=== PATIENT | male | born 1980 | race Caucasian/White ===

== ENCOUNTER 2018-10-11 15:42 | Emergency (ER) | payer OTHER ==
[2018-10-11] MEDS ORDERED: KETOROLAC TROMETHAMINE 60 MG/2 ML VIAL IM ONE (15:49)
[2018-10-11] MEDS ORDERED: predniSONE 20 MG TABLET (UD) PO ONE (15:49)
--- NOTE | 2018-10-11 15:56 | PDOC ---
History of Present Illness - History of Present Illness Initial Comments: The patient is a 37 year old male, with a significant PMH of degenerative disc disease, who presents to the emergency department today complaining of bilateral low back pain, without trauma, for 2 weeks. Patient reports the pain is most prominent bilaterally in the low back, and radiates into both hips. He states that pain is worse on his left side than his right, and is exacerbated with bending over. Patient notes he was seen two weeks ago at [facility] for this same issue, where he was given Percocet and Medrol which minimally alleviated his symptoms, but Meloxicam did not. He states he was then referred to a painter helper, where he is awaiting approval for an MRI of his spine. During this time, the pain has gotten progressively worse, prompting him to try to contact his painter helper who is out of office. The answering service suggested he come to the ED to be treated for his pain until his MRI is approved. He also notes he had an epidural 2 years ago for his degenerative disc disease, which he experienced relief for over one year. He denies bilateral LE weakness at this time. The patient denies chest pain, shortness of breath, headache and dizziness. Denies fever, chills, nausea, vomit, diarrhea and constipation. Denies dysuria, frequency, urgency and hematuria. Allergies: NKA Past surgical history: Bilateral hip pin Social history: No reported PCP: none reported 10/11/18 16:05 <Tejal Albrecht - Last Filed: 10/11/18 16:05> <Jean Nichols - Last Filed: 10/11/18 16:11> - General Chief Complaint: Back Pain Stated Complaint: BACK PAIN Time Seen by Provider: 10/11/18 15:49 Past History <Tejal Albrecht - Last Filed: 10/11/18 16:05> <Jean Nichols - Last Filed: 10/11/18 16:11> - Past Medical History Allergies/Adverse Reactions: Allergies Allergy/AdvReac Type Severity Reaction Status Date / Time No Known Allergies Allergy Verified 10/11/18 15:43 Home Medications: Ambulatory Orders Albuterol Sulfate Inhaler - [Ventolin HFA Inhaler -] 1 - 2 inh PO QID PRN Escitalopram Oxalate [Lexapro -] 30 mg PO DAILY 10/11/18 Fluticasone/Salmeterol [Advair 250-50 Diskus] 1 each IH ASDIR 10/11/18 Meloxicam [Mobic] 15 mg PO DAILY 10/11/18 Oxycodone HCl/Acetaminophen [Percocet 5-325 mg Tablet] 1 - 2 tab PO TID PRN #20 tab MDD 6 tabs 10/11/18 Prednisone [Prednisone 50 MG TABLETS] 50 mg PO DAILY #5 tablet 10/11/18 Review of Systems - Review of Systems Constitutional: No: Chills, Fever, Night Sweats Respiratory: No: Cough, Shortness of Breath ABD/GI: No: Diarrhea : No: Incontinence Musculoskeletal: Yes: Back Pain. No: Muscle Weakness Neurological: No: Headache, Paresthesia, Weakness All Other Systems: Reviewed and Negative <Jean Nichols - Last Filed: 10/11/18 16:11> *Physical Exam - Vital Signs Last Vital Signs Temp Pulse Resp BP Pulse Ox 98.1 F 75 18 138/80 97 10/11/18 15:42 10/11/18 15:42 10/11/18 15:42 10/11/18 15:42 10/11/18 15:42 - Physical Exam Comments: GENERAL: The patient is awake, alert, and fully oriented, in no acute distress. HEAD: Normal with no signs of trauma. EYES: Pupils equal, round and reactive to light, extraocular movements intact, sclera anicteric, conjunctiva clear. EXTREMITIES: Normal range of motion, no edema. NEUROLOGICAL: +Positive straight leg bilaterally, but 5/5 flexion and extension of the hip, knees, ankles, and toes. No midline reproducible tenderness. No reproducible tenderness over the sciatic region. Normal speech. PSYCH: Normal mood, normal affect. SKIN: Warm, Dry, normal turgor, no rashes or lesions noted. 10/11/18 16:11 <Tejal Albrecht - Last Filed: 10/11/18 16:05> Moderate Sedation - Procedure Monitoring Vital Signs: Procedure Monitoring Vital Signs Temperature 98.1 F 10/11/18 15:42 Pulse Rate 75 10/11/18 15:42 Respiratory Rate 18 10/11/18 15:42 Blood Pressure 138/80 10/11/18 15:42 O2 Sat by Pulse Oximetry (%) 97 10/11/18 15:42 <Tejal Albrecht - Last Filed: 10/11/18 16:05> Medical Decision Making - Medical Decision Making 10/11/18 15:51 Healthy 37-year-old male presents with 2 weeks of atraumatic left low back pain , history of degenerative disc disease in the past treated with epidurals now with recurrence about 2 weeks ago, initially treated in outside emergency department with Medrol Dosepak and Percocet but then re-exacerbated 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 Denies any weakness or numbness or bowel/bladder issues. Afebrile, vital signs normal No reproducible midline tenderness, normal strength 4 extremities, neurovascularly intact 37-year-old female presents with atraumatic exacerbation of low back pain, possible underlying disc disease awaiting outpatient management but delayed given the holidays. He is neurologically intact here without red flags on history or physical exam. No indication for emergent imaging We'll start course of NSAID, opiate, steroids Girlfriend here to drive him home, already has follow-up in place, understands return criteria. <Jean Nichols - Last Filed: 10/11/18 16:11> *DC/Admit/Observation/Transfer - Attestations Scribe Attestion: 10/11/18 16:11 Documentation prepared by MEREDITH Cardenas, acting as medical receptionist assistant for Jean Nichols MD. <Tejal Albrecht - Last Filed: 10/11/18 16:05> <Jean Nichols - Last Filed: 10/11/18 16:11> Diagnosis at time of Disposition: Lumbar radiculopathy Low back pain Qualifiers: Chronicity: acute Back pain laterality: bilateral Sciatica presence: without sciatica Qualified Code(s): M54.5 - Low back pain - Discharge Dispostion Disposition: HOME Condition at time of disposition: Stable - Prescriptions Prescriptions: Oxycodone HCl/Acetaminophen [Percocet 5-325 mg Tablet] 1 - 2 tab PO TID PRN #20 tab MDD 6 tabs PRN Reason: Severe Pain Prednisone [Prednisone 50 MG TABLETS] 50 mg PO DAILY #5 tablet - Referrals Referrals: Madhu Hassan MD [Staff Physician] - - Patient Instructions Printed Discharge Instructions: DI for Low Back Pain, DI for Lumbar Radiculopathy Additional Instructions: Activity as tolerated, avoid bed rest and heavy lifting. Stay hydrated. Aleve or meloxicam as previously prescribed as anti-inflammatory medication. Take prednisone daily as prescribed as steroid for further anti-inflammatory effect. Take Percocet as prescribed only as needed for severe pain, this medication can make you lightheaded so take proper precautions. Continue your medications as previously prescribed by your physician. You should follow up with your primary doctor and painter helper as soon as possible regarding today's emergency department visit. The arranged MRI will help further identify the cause of your symptoms. Return to the emergency department for any new or concerning symptoms, particularly intolerable pain, leg weakness or numbness, bowel or bladder issues , fevers or chills.
[2018-10-11] MEDS ORDERED: KETOROLAC TROMETHAMINE 60 MG/2 ML VIAL ONE (16:05)
[2018-10-11] MEDS ORDERED: predniSONE 20 MG TABLET (UD) ONE (16:06)
[2018-10-11 16:10] VITALS: BP 138/80; PULSE 75; TEMP 98.1; BMI 36.9
== END 2018-10-11 16:20 | disposition home or self-care (01) ==
LOC: FER 15:42
PROC: 3E0233Z Introduction of Anti-inflammatory into Muscle, Percutaneous Approach (ICD-10-PCS; principal; 2018-10-11)
DX: M54.5 Low back pain (principal); M54.16 Radiculopathy, lumbar region
CPT/HCPCS: 99283-25

== ENCOUNTER 2021-08-07 14:24 | Emergency (ER) | payer OTHER ==
[2021-08-07] MEDS ORDERED: SODIUM CHLORIDE 1,000 ML IV STA (15:02)
[2021-08-07] MEDS ORDERED: MAG HYDROX/AL HYDROX/SIMETH 30 ML UNIT-DOSE CUP PO ONE (15:02)
[2021-08-07] MEDS ORDERED: PANTOPRAZOLE SODIUM 40 MG in SODIUM CHLORIDE 100 ML IVPB ONE (15:02)
[2021-08-07] MEDS ORDERED: ACETAMINOPHEN 1000 MG/100 ML VIAL IVPB ONE (15:03)
[2021-08-07 15:04] VITALS: TEMP 98.1; BMI 30.9
[2021-08-07 15:09] LABS: WHITE BLOOD COUNT 7.2 K/mm3 (4.0-10.8)
[2021-08-07] MEDS ORDERED: PANTOPRAZOLE SODIUM 40 MG VIAL ONE (15:11)
[2021-08-07] MEDS ORDERED: MAG HYDROX/AL HYDROX/SIMETH 30 ML UNIT-DOSE CUP ONE (15:11)
[2021-08-07] MEDS ORDERED: ACETAMINOPHEN INJECTION 100 ML IVPB ONE (15:11)
[2021-08-07 15:15] LABS: EOS % 4.5 % (0-4.5); MEAN PLT VOLUME 10.4 fl (7.5-11.1)
[2021-08-07 15:21] LABS: ALBUMIN 4.8 g/dl (3.4-5.0); ALK PHOS 59 U/L (45-117); ANION GAP 12 MMOL/L (8-16); BILIRUBIN,TOTAL 0.5 mg/dl (0.2-1); CALCIUM 9.3 mg/dl (8.5-10); CHLORIDE 103 mmol/L (98-107); CO2 25 mmol/L (21-32); CREATININE 0.8 mg/dl (0.55-1.3); GLUCOSE,RANDOM 70 mg/dl (74-106); SGOT/AST 38 U/L (15-37); SGPT/ALT 39 U/L (13-61); SODIUM 140 mmol/L (136-145); TOT PROT 7.4 g/dl (6.4-8.2)
[2021-08-07 15:29] LABS: BASO % 2.3 % (0-2.0); HEMATOCRIT 43.4 % (35.4-49); HEMOGLOBIN 14.8 GM/dl (11.7-16.9); LYMPH % 33.2 % (8-40); MCH 29.9 pg (25.7-33.7); MONO % 6.8 % (3.8-10.2); NEUT % 53.2 % (42.8-82.8); PLATELET COUNT 218 10^3/uL (134-434); RBC 4.93 M/mm3 (4.00-5.60)
[2021-08-07 16:46] VITALS: BP 103/63; PULSE 85
[2021-08-07 17:27] LABS: LIPASE 207 U/L (73-393)
[2021-08-07 17:32] LABS: COCAINE, UR NEGATIVE (NEGATIVE); URINE AMPHETAMINES NEGATIVE (NEGATIVE); URINE BENZODIAZEPINES NEGATIVE (NEGATIVE)
[2021-08-07 17:33] LABS: METHADONE, UR NEGATIVE (NEGATIVE); OPIATES, URI NEGATIVE (NEGATIVE); PHENCYCLIDINE,URINE NEGATIVE (NEGATIVE)
[2021-08-07 17:36] LABS: URINE BARBITURATES NEGATIVE (NEGATIVE)
== END 2021-08-07 18:06 | disposition home or self-care (01) ==
LOC: FER 14:24
PROC: 3E0333Z Introduction of Anti-inflammatory into Peripheral Vein, Percutaneous Approach (ICD-10-PCS; principal; 2021-08-07)
PROC: 3E033GC Introduction of Other Therapeutic Substance into Peripheral Vein, Percutaneous Approach (ICD-10-PCS; 2021-08-07)
PROC: 3E0337Z Introduction of Electrolytic and Water Balance Substance into Peripheral Vein, Percutaneous Approach (ICD-10-PCS; 2021-08-07)
DX: R07.9 Chest pain, unspecified (principal)
CPT/HCPCS: 36415; 71046-TC-FY; 80053; 80307; 82550; 82553; 83690; 84484; 85025; 93005; 99285-25; J0131